=== PATIENT | male | born 1970 | race Caucasian/White ===

== ENCOUNTER 2024-11-24 19:04 | Inpatient (IN) | payer BC ==
[~2024-11-24] VITALS: Ht 182.9 cm; Wt 81.6 kg
[2024-11-24 19:56] LABS: PLATELET COUNT (AUTO) 172 K/uL (152-348); RED BLOOD CELL COUNT(AUTO) 4.56 MIL/uL (4.06-5.63); RED CELL DISTRIBUTION WIDTH 13.2 % (12.1-16.2); WHITE BLOOD COUNT (AUTO) 10.6 K/uL (3.6-10.2)
[2024-11-24 20:02] LABS: CREATININE 1.1 mg/dL (0.6-1.3); SODIUM SERUM 137.0 mmol/L (136-145); UREA NITROGEN, BLOOD 18.0 mg/dL (7-18)
[2024-11-24] MEDS ORDERED: HYDROMORPHONE 1 MG/1 ML DISP.SYRIN ONE ×2 (20:07→21:45)
[2024-11-24] MEDS ORDERED: ONDANSETRON 4 MG/2 ML VIAL ONE (20:07)
[2024-11-24 20:08] LABS: ASPARTATE AMINOTRANSFERASE 13.0 U/L (15-37); TOTAL PROTEIN, SERUM 7.2 g/dL (6.4-8.2)
[2024-11-24] MEDS: HYDROMORPHONE 1 MG/1 ML DISP.SYRIN IV ONE ×2 (20:21→21:50)
[2024-11-24] MEDS: ONDANSETRON 4 MG/2 ML VIAL IV ONE (20:21)
[2024-11-24] MEDS: IV NORMAL SALINE 1000 ML BAG IV ONE ×2 (20:21→21:27)
[2024-11-24] MEDS ORDERED: IOHEXOL 300MG/ML 100 ML INFUS..BTL ONE (20:31)
[2024-11-24] MEDS ORDERED: IV NORMAL SALINE 250 ML IV ONE (20:32)
[2024-11-24] MEDS ORDERED: SWABABLE VALVE TRANSFER SET EA MC ONE (20:32)
[2024-11-24] MEDS ORDERED: diphenhydrAMINE 50 MG/1 ML VIAL ONE (22:14)
[2024-11-24] MEDS ORDERED: METOCLOPRAMIDE HCL 10 MG/2 ML VIAL ONE (22:14)
[2024-11-24] MEDS: diphenhydrAMINE 50 MG/1 ML VIAL IV ONE (22:16)
[2024-11-24] MEDS: METOCLOPRAMIDE HCL 10 MG/2 ML VIAL IV ONE (22:16)
[2024-11-24] MEDS ORDERED: MAGNESIUM HYDROXIDE 30 ML LIQUID UDC PO PRN (23:00)
[2024-11-24] MEDS ORDERED: ACETAMINOPHEN 325 MG TABLET PO PRN (23:00)
[2024-11-24] MEDS ORDERED: REMEDY ESSENTIAL ZINC PASTE 113 GM TP PRN (23:00)
[2024-11-24] MEDS ORDERED: PIPERACILLIN/TAZOBACTAM/D5W 50 ML IV ONE (23:12)
[2024-11-24] MEDS: PIPERACILLIN SODIUM/TAZOBACTAM 3.375 G in IV DEXTROSE 5% 50 ML IV ONE (23:19)
[2024-11-24 23:30] VITALS: BP 118/75
[2024-11-25] MEDS ORDERED: PIPERACILLIN SODIUM/TAZOBACTAM 3.375 G in IV DEXTROSE 5% 50 ML IV SCH
[2024-11-25 00:15] VITALS: BP 111/55; TEMP 97.8; O2SAT 98
[2024-11-25 04:00] VITALS: BP 106/58; TEMP 98.2; O2SAT 98
[2024-11-25] MEDS ORDERED: PIPERACILLIN/TAZOBACTAM/D5W 50 ML IV ONE (05:50)
[2024-11-25] MEDS: PIPERACILLIN SODIUM/TAZOBACTAM 3.375 G in IV DEXTROSE 5% 50 ML IV ONE (06:11)
[2024-11-25] MEDS: IV NS 1000 ML 1,000 ML IV PRN (07:10)
[2024-11-25 07:14] LABS: PLATELET COUNT (AUTO) 150 K/uL (152-348); RED BLOOD CELL COUNT(AUTO) 3.97 MIL/uL (4.06-5.63); RED CELL DISTRIBUTION WIDTH 13.1 % (12.1-16.2); WHITE BLOOD COUNT (AUTO) 7.2 K/uL (3.6-10.2)
[2024-11-25] MEDS ORDERED: PIPERACILLIN SODIUM/TAZOBACTAM 3.375 G in IV DEXTROSE 5% 100 ML IV SCH (07:30)
[2024-11-25 07:47] LABS: CREATININE 1.0 mg/dL (0.6-1.3); SODIUM SERUM 141.0 mmol/L (136-145); UREA NITROGEN, BLOOD 13.0 mg/dL (7-18)
[2024-11-25] MEDS ORDERED: LISD30CA2 PO (09:04)
[2024-11-25 10:47] VITALS: BP 119/75; TEMP 98.6; O2SAT 98
[2024-11-25] MEDS: PIPERACILLIN SODIUM/TAZOBACTAM 3.375 G in IV DEXTROSE 5% 100 ML IV SCH (13:07)
[2024-11-25 16:00] VITALS: BP 126/74; TEMP 97.6; O2SAT 96
[2024-11-25 20:00] VITALS: BP 124/70; TEMP 98.6; O2SAT 100
[2024-11-25] MEDS: HYDROMORPHONE 1 MG/1 ML DISP.SYRIN IV PRN (21:56)
[2024-11-25] MEDS: ONDANSETRON 4 MG/2 ML VIAL IV PRN (22:01)
[2024-11-26] MEDS: MELATONIN 3 MG TABLET PO SCH (00:30)
[2024-11-26 04:00] VITALS: BP 112/68; TEMP 98.1; O2SAT 100
[2024-11-26 06:53] LABS: PLATELET COUNT (AUTO) 159 K/uL (152-348); RED BLOOD CELL COUNT(AUTO) 4.00 MIL/uL (4.06-5.63); RED CELL DISTRIBUTION WIDTH 13.2 % (12.1-16.2); WHITE BLOOD COUNT (AUTO) 5.2 K/uL (3.6-10.2)
[2024-11-26 07:06] LABS: CREATININE 1.2 mg/dL (0.6-1.3); SODIUM SERUM 139.0 mmol/L (136-145); UREA NITROGEN, BLOOD 14.0 mg/dL (7-18)
[2024-11-26 07:24] LABS: *BILIRUBIN,URIN NEGATIVE (NEGATIVE); *BLOOD, URINE NEGATIVE (NEGATIVE); *CLARITY,URINE CLEAR (CLEAR); *COLOR,URINE YELLOW (YELLOW); *KETONES,URINE NEGATIVE (NEGATIVE); *PROTEIN,URINE NEGATIVE (NEGATIVE); *UROBILINOGEN,URINE 0.2 E.U./dl (NORMAL); LEUKOCYTE ESTERASE ,URINE NEGATIVE (NEGATIVE); NITRITE, URINE NEGATIVE (NEGATIVE); UGLUCOSE NEGATIVE (NEGATIVE)
[2024-11-26 11:05] VITALS: BP 126/66; TEMP 97.7; O2SAT 97
[2024-11-26] MEDS ORDERED: AMOX-430 PO (11:32)
[2024-11-26] MEDS ORDERED: TRAM50TA2 PO (11:32)
[2024-11-26] MEDS: PIPERACILLIN SODIUM/TAZOBACTAM 3.375 G in IV DEXTROSE 5% 50 ML IV SCH (13:00)
[2024-11-26 14:36] VITALS: BP 137/68; TEMP 98.1; O2SAT 97
== END 2024-11-26 18:45 | disposition home or self-care (01) | DRG 395 ==
LOC: ER 19:16 → MEDSURG3 23:56
PROVIDERS: ADMIT Nurse Practitioner Acute Care; ATTEND Nurse Practitioner Acute Care
DX: K35.80 Unspecified acute appendicitis (principal); Z88.3 Allergy status to other anti-infective agents; Z88.2 Allergy status to sulfonamides
CPT/HCPCS: 36415; 83690; 83735; 84100; 85025; A4663; G0378; J1171; J1200; J2405; J2543; J2765; J7040; Q9967